=== PATIENT | male | born 1970 | race Asian ===

== ENCOUNTER 2017-12-20 15:14 | Observation (INO) | payer OTHER ==
[2017-12-20] MEDS ORDERED: NS 0.9% 1000 ML* 1,000 ML IV ONE (17:32)
[2017-12-20 18:06] LABS: ABS Basophils 0.1 10^3/ul (0-0.2); ABS Eosinophils 0 10^3/ul (0-0.6); ABS Lymphocytes 1.9 10^3/ul (1.0-4.8); ABS Monocytes 1.5 10^3/ul (0-0.8); ABS Neutrophils 14.5 10^3/ul (1.5-7.7); ABS Nucleated RBC 0 10^3/ul; Eosinophil % 0.2 % (0-6); Hematocrit 47 % (42-52); Lymphocyte % 10.4 % (25-47); Mean Corpuscular HGB Conc 34 g/dl (31-36); Mean Corpuscular Hemoglobin 29 pg (27-31); Mean Corpuscular Volume 84 fL (80-94); Mean Platelet Volume 9 um3 (7.4-10.4); Nucleated Red Blood Cells % 0; Platelet Count 232 10^3/ul (150-450); Red Blood Count 5.54 10^6/ul (4.0-5.4); Red Cell Distribution Width 14 % (10.5-15); White Blood Count 17.9 10^3/ul (3.5-10.8)
[2017-12-20 18:22] LABS: INR 1.03 (0.77-1.02)
[2017-12-20 18:23] LABS: EGFR Non-African American 104.2 (>60)
[2017-12-20] MEDS ORDERED: Iohexol 300* (CONTRAST) 10 ML SDV IV ONE (19:10)
[2017-12-20] MEDS ORDERED: Ketorolac INJ* 30 MG/ML 1 ML VIAL IV PUSH ONE (19:18)
[2017-12-20 19:44] LABS: Urine Appearance Clear; Urine Blood Negative (Negative); Urine Color Yellow; Urine Ketones 1+ (Negative); Urine Protein Negative (Negative); Urine Urobilinogen Negative (Negative)
[2017-12-20] MEDS ORDERED: Piperacillin/Tazobac ADVAN(*) 3.375 GM in NS 0.9% 100 ML* 100 ML IVPB ONE (20:49)
--- NOTE | 2017-12-20 21:48 | RAD ---
Indication: Right lower quadrant pain. Contrast: Administered 88.0 ml of OMNIPAQUE 300 mg/ml CT of the abdomen and pelvis was performed after oral and IV contrast administration. Coronal and sagittal reconstructed images were obtained. The lung bases demonstrate small pleural effusions with bibasilar atelectasis. Heart is of normal size without evidence of pericardial effusion. The liver is normal in size. There is a low density lesion in the left lobe of liver measuring 7 mm. No intrahepatic duct dilatation is noted. The gallbladder is partially contracted. No gallstones are identified. The pancreas demonstrates no mass or pancreatic duct dilatation. The spleen is normal in size. No adrenal lesions are noted. The kidneys demonstrate symmetric nephrograms without focal lesions. There is a low density lesion in the upper pole of the right kidney measuring 17 mm. No retroperitoneal lymphadenopathy is noted. CT of the pelvis demonstrates a dilated appendix. An appendicolith is present at the base of the appendix. Inflammatory changes are noted. The urinary bladder is otherwise unremarkable. No evidence of bowel obstruction is noted. IMPRESSION: Findings consistent with acute appendicitis with appendicolith and enlarged fluid-filled appendix. Adjacent inflammatory changes are noted. Dr. Doyle was notified of the results at 2145 hours.
--- NOTE | 2017-12-20 21:55 | ED ---
Ema Soto Thomas, scribed for Irma Doyle MD on 12/20/17 at 1912 . GI/ HPI - HPI Summary HPI Summary: The patient is a 47 year old male who presents with suprapubic and RLQ abdominal pain that began today as well as blood noted during his last BM that occurred today at 11:00. The pain is sharp and radiates to his back. He additionally complains of lower back pain. He denies constipation, diarrhea, and testicular pain. Past medical history includes hypertension. He is not anticoagulated. - History of Current Complaint Chief Complaint: EDGIBleed Time Seen by Provider: 12/20/17 17:31 Stated Complaint: ABD PAIN/FLANK PAIN Hx Obtained From: Patient Onset/Duration: Started Hours Ago - onset earlier today, Still Present Timing: Constant Current Severity: Moderate Pain Intensity: 8 Location of Pain: RLQ, Suprapubic Pain Characteristics: Sharp Pain Radiates to: Back Associated Signs and Symptoms: Positive: Blood w/Stool, Other: - Lower back pain ; NEGATIVE: constipation, diarrhea, and testicular pain, fever, eye erythema, ear ache, chest pain, shortness of breath, dysuria, hematuria, edema, rashes, bruises, headache, anxiety, and depression Alleviating Factor(s): Nothing - Allergy/Home Medications Allergies/Adverse Reactions: Allergies Allergy/AdvReac Type Severity Reaction Status Date / Time No Known Allergies Allergy Verified 11/27/17 14:34 PMH/Surg Hx/FS Hx/Imm Hx Endocrine/Hematology History: Denies: Hx Diabetes Cardiovascular History: Reports: Hx Hypertension Denies: Hx Pacemaker/ICD Respiratory History: Reports: Hx Chronic Obstructive Pulmonary Disease (COPD) Denies: Hx Asthma History: Denies: Hx Renal Disease Sensory History: Denies: Hx Hearing Aid Psychiatric History: Denies: Hx Panic Disorder - Surgical History Surgery Procedure, Year, and Place: KIDNEY STONES - Immunization History Date of Tetanus Vaccine: Unk Date of Influenza Vaccine: None Infectious Disease History: No Infectious Disease History: Denies: Traveled Outside the [place] in Last 30 Days - Family History Known Family History: Positive: Hypertension Negative: Cardiac Disease, Diabetes - Social History Alcohol Use: Occasionally Substance Use Type: Reports: Marijuana Smoking Status (MU): Current Every Day Smoker Review of Systems Negative: Fever, Chills Negative: Erythema Negative: Ear Ache Negative: Chest Pain Negative: Shortness Of Breath Positive: Abdominal Pain, Other - Blood with stool; NEGATIVE: constipation. Negative: Vomiting, Diarrhea Negative: dysuria, hematuria Positive: Other - Low back pain. Negative: Edema Negative: Rash, Bruising Negative: Headache Negative: Anxious, Depressed All Other Systems Reviewed And Are Negative: No Physical Exam - Summary Physical Exam Summary: Appearance: Alert, conversive, nontoxic appearing Skin: Warm, dry, no mottling, no rashes, no contusions HEENT: EOMI, PERRL, moist mucous membranes Neck: No masses on the neck, supple Respiratory: Clear to auscultation, breath sounds present, no rales, no rhonchi , no wheezes Cardiovascular: RRR, pulses are symmetrical in both lower and upper extremities Abdomen: Soft. He has mild suprapubic pain, more impressive on the right. Bowel Sounds: Present Musculoskeletal: No CVA tenderness, no obvious deformity, moving all extremities in a grossly normal manner Neurological: A&Ox3, CN II-XII Intact, moving all extremities symmetrically Psychiatric: Normal affect and mood Triage Information Reviewed: Yes Vital Signs On Initial Exam: Initial Vitals Temp Pulse Resp BP Pulse Ox 97.8 F 89 18 166/90 97 12/20/17 17:12 12/20/17 17:12 12/20/17 17:12 12/20/17 17:12 12/20/17 17:12 Vital Signs Reviewed: Yes Diagnostics - Vital Signs Vital Signs Temp Pulse Resp BP Pulse Ox 12/20/17 18:00 77 19 98 12/20/17 17:44 85 95 12/20/17 17:43 163/83 12/20/17 17:12 97.8 F 89 18 166/90 97 - Laboratory Lab Results: Lab Results 12/20/17 12/20/17 12/20/17 Range/Units 17:48 17:48 17:48 WBC (3.5-10.8) 10^3/ul RBC (4.0-5.4) 10^6/ul Hgb (14.0-18.0) g/dl Hct (42-52) % MCV (80-94) fL MCH (27-31) pg MCHC (31-36) g/dl RDW (10.5-15) % Plt Count (150-450) 10^3/ul MPV (7.4-10.4) um3 Neut % (Auto) (38-83) % Lymph % (Auto) (25-47) % [place] % (Auto) (1-9) % Eos % (Auto) (0-6) % Baso % (Auto) (0-2) % Absolute Neuts (auto) (1.5-7.7) 10^3/ul Absolute Lymphs (auto) (1.0-4.8) 10^3/ul Absolute Monos (auto) (0-0.8) 10^3/ul Absolute Eos (auto) (0-0.6) 10^3/ul Absolute Basos (auto) (0-0.2) 10^3/ul Absolute Nucleated RBC 10^3/ul Nucleated RBC % INR (Anticoag Therapy) 1.03 H (0.77-1.02) APTT 32.6 (26.0-36.3) seconds Sodium 139 (133-145) mmol/L Potassium 3.3 L (3.5-5.0) mmol/L Chloride 100 L (101-111) mmol/L Carbon Dioxide 32 (22-32) mmol/L Anion Gap 7 (2-11) mmol/L BUN 9 (6-24) mg/dL Creatinine 0.79 (0.67-1.17) mg/dL Est GFR ( Amer) 134.1 (>60) Est GFR (Non-Af Amer) 104.2 (>60) BUN/Creatinine Ratio 11.4 (8-20) Glucose 96 (70-100) mg/dL Calcium 9.5 (8.6-10.3) mg/dL Total Bilirubin 0.90 (0.2-1.0) mg/dL AST 13 (13-39) U/L ALT 11 (7-52) U/L Alkaline Phosphatase 69 (34-104) U/L Troponin I 0.00 (<0.04) ng/mL Total Protein 7.6 (6.4-8.9) g/dL Albumin 4.1 (3.2-5.2) g/dL Globulin 3.5 (2-4) g/dL Albumin/Globulin Ratio 1.2 (1-3) Lipase 16 (11.0-82.0) U/L Blood Type B Positive Antibody Screen Negative 12/20/17 Range/Units 17:48 WBC 17.9 H (3.5-10.8) 10^3/ul RBC 5.54 H (4.0-5.4) 10^6/ul Hgb 16.0 (14.0-18.0) g/dl Hct 47 (42-52) % MCV 84 (80-94) fL MCH 29 (27-31) pg MCHC 34 (31-36) g/dl RDW 14 (10.5-15) % Plt Count 232 (150-450) 10^3/ul MPV 9 (7.4-10.4) um3 Neut % (Auto) 80.7 (38-83) % Lymph % (Auto) 10.4 L (25-47) % [place] % (Auto) 8.2 (1-9) % Eos % (Auto) 0.2 (0-6) % Baso % (Auto) 0.5 (0-2) % Absolute Neuts (auto) 14.5 H (1.5-7.7) 10^3/ul Absolute Lymphs (auto) 1.9 (1.0-4.8) 10^3/ul Absolute Monos (auto) 1.5 H (0-0.8) 10^3/ul Absolute Eos (auto) 0 (0-0.6) 10^3/ul Absolute Basos (auto) 0.1 (0-0.2) 10^3/ul Absolute Nucleated RBC 0 10^3/ul Nucleated RBC % 0 INR (Anticoag Therapy) (0.77-1.02) APTT (26.0-36.3) seconds Sodium (133-145) mmol/L Potassium (3.5-5.0) mmol/L Chloride (101-111) mmol/L Carbon Dioxide (22-32) mmol/L Anion Gap (2-11) mmol/L BUN (6-24) mg/dL Creatinine (0.67-1.17) mg/dL Est GFR ( Amer) (>60) Est GFR (Non-Af Amer) (>60) BUN/Creatinine Ratio (8-20) Glucose (70-100) mg/dL Calcium (8.6-10.3) mg/dL Total Bilirubin (0.2-1.0) mg/dL AST (13-39) U/L ALT (7-52) U/L Alkaline Phosphatase (34-104) U/L Troponin I (<0.04) ng/mL Total Protein (6.4-8.9) g/dL Albumin (3.2-5.2) g/dL Globulin (2-4) g/dL Albumin/Globulin Ratio (1-3) Lipase (11.0-82.0) U/L Blood Type Antibody Screen Result Diagrams: 12/20/17 17:48 12/20/17 17:48 Lab Statement: Any lab studies that have been ordered have been reviewed, and results considered in the medical decision making process. - CT Abd/Pel CT Interpretation: Positive (See Comments) - Findings consistent with acute appendicitis with appendicolith and enlarged fluid-filled appendix. Adjacent inflammatory changes are noted. CT Interpretation Completed By: Radiologist - EKG 17:34 Cardiac Rate: NL EKG Rhythm: Sinus Rhythm - at 76 BPM EKG Interpretation: Slightly prolonged QRS. Normal QTc. Incomplete RBBB. Normal ST T-waves. GIGU Course/Dx - Course Assessment/Plan: The patient is a 47 year old male who presents with suprapubic and RLQ abdominal pain that began today as well as blood noted during his last BM that occurred today at 11:00. The patient was given IV fluids, Zosyn, and Toradol. Bloodwork, urinalysis, and an EKG were obtained. CT Abd/Pel shows acute appendicitis. Dr. Antony, surgery, will admit. - Diagnoses Provider Diagnoses: Acute appendicitis - Physician Notifications Discussed Care Of Patient With: Esau Antony Time Discussed With Above Provider: 21:52 Instructed by Provider To: Admit As Inpatient Discharge - Discharge Plan Condition: Fair Disposition: ADMITTED TO [facility] Referrals: Samuel Green MD [Primary Care Provider] - The documentation as recorded by the Ema bravo Thomas accurately reflects the service I personally performed and the decisions made by , Irma Doyle MD.
[2017-12-20] MEDS ORDERED: Ondansetron INJ* 2 MG/ML VIAL IV PRN (21:59)
[2017-12-20] MEDS ORDERED: HYDROmorphone INJ* 2 MG/ML CARPUJECT SYRINGE IV PRN (21:59)
[2017-12-20] MEDS ORDERED: Piperacillin/Tazobactam VIAL*) 3.375 GM in NS 0.9% 100 ML* 100 ML IVPB SCH (22:00)
[2017-12-21] MEDS: NS 0.9% 1000 ML* 1,000 ML IV SCH ×3 (00:23→13:54)
[2017-12-21] MEDS: Piperacillin/Tazobactam 13.5 GM IV 24 hour continuous infusion IVPB SCH ×2 (00:40)
[2017-12-21] MEDS ORDERED: Bupivacaine 0.25% SDV* 30 ML ONE (07:34)
--- NOTE | 2017-12-21 08:19 | HP ---
H&P (Free Text) History and Physical: Surgery H & P Asked by Dr. Antony to take over care of Mr. Reed, a 47 y.o. male with abdominal pain and a CT suggestive of appendicitis. Mr. Reed began to have "cramping pain" that was vague and located in the upper abdomen yesterday morning. Over the day the pain progressed and eventually localized to the RLQ. He denies nausea, vomiting. He has had some constipation, no diarrhea. He denies dysuria. He does not think he had a fever. The pain medicine in the ER has managed his pain. He has never had this pain before, he denies anorexia. PMHx: HTN Meds: HCTZ, amlodipine NKDA ROS: denies SH: tob 11/29-11/27 ppd; denies EtOH, neg. IVDA FH: denies PE: general: WDWN male in NAD Vital Signs 12/20/17 12/20/17 12/20/17 17:12 17:43 17:44 Temperature 97.8 F Pulse Rate 89 85 Respiratory 18 Rate Blood Pressure 166/90 163/83 (mmHg) O2 Sat by Pulse 97 95 Oximetry 12/20/17 12/20/17 12/20/17 18:00 19:00 21:41 Temperature Pulse Rate 77 85 81 Respiratory 19 18 23 Rate Blood Pressure (mmHg) O2 Sat by Pulse 98 98 97 Oximetry 12/20/17 12/20/17 12/20/17 22:00 22:36 22:48 Temperature 100.1 F Pulse Rate 76 68 Respiratory 7 23 18 Rate Blood Pressure 146/75 146/75 (mmHg) O2 Sat by Pulse 98 99 Oximetry 12/20/17 12/20/17 12/21/17 23:25 23:35 03:41 Temperature 97.9 F 97.9 F 98.7 F Pulse Rate 70 70 71 Respiratory 17 17 16 Rate Blood Pressure 134/73 134/73 141/73 (mmHg) O2 Sat by Pulse 99 99 99 Oximetry 12/21/17 07:18 Temperature Pulse Rate Respiratory 16 Rate Blood Pressure (mmHg) O2 Sat by Pulse Oximetry HEENT: anicteric, injected sclerae, dry oral mucosa, neg. cervical adenopathy. lungs: bilateral wheezing heart: reg, no murmurs. abd: good BS, soft, tender in RLQ, and suprapubic area with guarding, no rebound. ext: neg. cyanosis, edema, easily palp DP pulses. Laboratory Results - last 24 hr 12/20/17 12/20/17 12/20/17 17:48 17:48 17:48 WBC RBC Hgb Hct MCV MCH MCHC RDW Plt Count MPV Neut % (Auto) Lymph % (Auto) [place] % (Auto) Eos % (Auto) Baso % (Auto) Absolute Neuts (auto) Absolute Lymphs (auto) Absolute Monos (auto) Absolute Eos (auto) Absolute Basos (auto) Absolute Nucleated RBC Nucleated RBC % INR (Anticoag Therapy) 1.03 H APTT 32.6 Sodium 139 Potassium 3.3 L Chloride 100 L Carbon Dioxide 32 Anion Gap 7 BUN 9 Creatinine 0.79 Est GFR ( Amer) 134.1 Est GFR (Non-Af Amer) 104.2 BUN/Creatinine Ratio 11.4 Glucose 96 Calcium 9.5 Total Bilirubin 0.90 AST 13 ALT 11 Alkaline Phosphatase 69 Troponin I 0.00 Total Protein 7.6 Albumin 4.1 Globulin 3.5 Albumin/Globulin Ratio 1.2 Lipase 16 Urine Color Urine Appearance Urine pH Ur Specific [place] Urine Protein Urine Ketones Urine Blood Urine Nitrate Urine Bilirubin Urine Urobilinogen Ur Leukocyte Esterase Urine Glucose Blood Type B Positive Antibody Screen Negative 12/20/17 12/20/17 17:48 19:10 WBC 17.9 H RBC 5.54 H Hgb 16.0 Hct 47 MCV 84 MCH 29 MCHC 34 RDW 14 Plt Count 232 MPV 9 Neut % (Auto) 80.7 Lymph % (Auto) 10.4 L [place] % (Auto) 8.2 Eos % (Auto) 0.2 Baso % (Auto) 0.5 Absolute Neuts (auto) 14.5 H Absolute Lymphs (auto) 1.9 Absolute Monos (auto) 1.5 H Absolute Eos (auto) 0 Absolute Basos (auto) 0.1 Absolute Nucleated RBC 0 Nucleated RBC % 0 INR (Anticoag Therapy) APTT Sodium Potassium Chloride Carbon Dioxide Anion Gap BUN Creatinine Est GFR ( Amer) Est GFR (Non-Af Amer) BUN/Creatinine Ratio Glucose Calcium Total Bilirubin AST ALT Alkaline Phosphatase Troponin I Total Protein Albumin Globulin Albumin/Globulin Ratio Lipase Urine Color Yellow Urine Appearance Clear Urine pH 7.0 Ur Specific [place] 1.010 Urine Protein Negative Urine Ketones 1+ H Urine Blood Negative Urine Nitrate Negative Urine Bilirubin Negative Urine Urobilinogen Negative Ur Leukocyte Esterase Negative Urine Glucose Negative Blood Type Antibody Screen CT abdomen/pelvis shows thickened appendix with fecalith. A/P: 47 y.o. male with probable appendicitis. Will proceed to OR for laparoscopic appendectomy. I have explained to him the nature of the procedure , its risks, benefits, and alternatives. He understands and agrees to proceed. Minnie
--- NOTE | 2017-12-21 08:59 | RAD ---
HISTORY: Wheezing COMPARISONS: November 07, 2016 VIEWS: 1: frontal portable view of the chest at 8:15 AM FINDINGS: LINES AND TUBES: None. CARDIOMEDIASTINAL SILHOUETTE: The cardiomediastinal silhouette is normal for portable technique. PLEURA: Again noted is pleural thickening bilaterally. LUNG PARENCHYMA: Inflation. There are stable pleural parenchymal scarring. ABDOMEN: The upper abdomen is clear. There is no subphrenic gas. BONES AND SOFT TISSUES: No bone or soft tissue abnormalities are noted. IMPRESSION: STABLE PLEURAL THICKENING WITH PLEURAL PARENCHYMAL SCARRING AND HYPERINFLATION.
[2017-12-21] MEDS ORDERED: Succinylcholine* 20 MG/ML 10 ML VIAL ONE (09:10)
[2017-12-21] MEDS ORDERED: Propofol* 10 MG/ML 20 ML BTL IV PUSH ONE (09:10)
[2017-12-21] MEDS ORDERED: fentaNYL* 50 MCG/ML 2 ML VIAL (100 MCG VIAL) ONE (09:10)
[2017-12-21] MEDS ORDERED: Lidocaine 2% PF * 5 ML VIAL ONE (09:11)
[2017-12-21] MEDS ORDERED: oxyCODONE/Acetamin 5/325 MG* TAB PO PRN ×2 (09:55→10:47)
[2017-12-21] MEDS ORDERED: fentaNYL* 50 MCG/ML 2 ML VIAL (100 MCG VIAL) IV PRN (09:55)
[2017-12-21] MEDS ORDERED: DiMENhydriNATE IV* 50 MG/ML VIAL IV PUSH PRN (09:55)
[2017-12-21] MEDS ORDERED: Naloxone* 0.4 MG/ML 1 ML VIAL IV PRN (09:55)
[2017-12-21] MEDS ORDERED: Ondansetron INJ* 2 MG/ML VIAL IV PRN (09:55)
[2017-12-21] MEDS ORDERED: Ketorolac INJ* 30 MG/ML 1 ML VIAL IV PRN (09:55)
--- NOTE | 2017-12-21 10:26 | BRIEFOPN ---
Brief Operative Note - Surgery Procedures: 12/21/17 Op Note (dictated) Pre-op dx: appendicitis Post-op dx: same Procedure: laparoscopic appendectomy surgeon: Sriram Asst: none Anesth: general EBL: 5 cc complications; none SCDs on during surgery Abx: given pre-op Pt. tolerated procedure well and was transferred to in a stable condition. CLFoster
[2017-12-21] MEDS ORDERED: Acetaminophen TAB* 325 MG PO PRN (10:48)
[2017-12-21] MEDS ORDERED: Ibuprofen TAB* 600 MG PO PRN (10:49)
[2017-12-21] MEDS: amLODIPine TAB* 5 MG PO SCH (12:17)
[2017-12-21] MEDS: oxyCODONE/Acetamin 5/325 MG* TAB PO PRN ×2 (12:17→19:18)
--- NOTE | 2017-12-21 22:21 | OP ---
CC: [facility] OPERATIVE SUMMARY: DATE OF OPERATION: 12/21/17 DATE OF : 66 SURGEON: Candis Bhatia MD TRANSISTOR TESTER: There was no assistant corporate secretary for this case. PRE-OP DIAGNOSIS: Appendicitis. POST-OP DIAGNOSIS: Appendicitis. OPERATIVE PROCEDURE: Laparoscopic appendectomy. INDICATIONS: Mr. Reed is a 47-year-old male, who presented to the emergency room with abdominal p ain consistent with appendicitis. A CAT scan suggested appendicitis and exam was consistent with sadaf endicitis. This prompted the plan for a surgical intervention. DESCRIPTION OF PROCEDURE: He was brought to the operating room, placed on the OR table in a supine p osition, and given general anesthesia. The abdomen was then prepped and draped in the usual sterile fashion. After infiltrating with local anesthetic, a curvilinear infraumbilical incision was made an d subcutaneous tissue was divided bluntly. The fascia was grasped and incised and a 0 Vicryl stitch was placed on either side of the fascial incision. A trocar was inserted into the abdomen and the ab domen was insufflated and under direct visualization after infiltrating with local anesthetic, ports were placed in the suprapubic and left flank area. The right lower quadrant was visualized and was n oted to be omentum and bowel adherent to what turned out to be an inflamed suppurative appendix. The bowel and omentum were mobilized away from the appendix. The appendix was grasped and the base of t he appendix was identified and cleared. The EndoGIA stapler was then fired across the bases of the a ppendix and a second firing was fired across the mesoappendix. The appendix was placed in an EndoCat ch bag and withdrawn from the abdomen through the infraumbilical port site. Recent inspection of the rest of the abdomen revealed a small inguinal hernia on the right side and fatty liver. No other ob vious abnormalities were seen, although visualization was limited. The ports were withdrawn under di rect visualization. The previously placed 0 Vicryl was used to close the fascia at the infraumbilica l port site and 4-0 Monocryl was used to close the skin of all incisions. Steri-Strips were applied. All sponge and instrument counts were correct. The patient tolerated the procedure well and was tr ansferred to Recovery in a stable condition. [id number]/[facility] #: [id number]
[2017-12-22] MEDS: Piperacillin/Tazobactam 13.5 GM IV 24 hour continuous infusion IVPB SCH ×2 (00:42)
[2017-12-22] MEDS: oxyCODONE/Acetamin 5/325 MG* TAB PO PRN ×2 (00:42→07:20)
[2017-12-22] MEDS: amLODIPine TAB* 5 MG PO SCH (07:20)
--- NOTE | 2017-12-22 07:51 | PN ---
Progress Note - Progress Note Date of Service: 12/22/17 Note: Surgery Mr. Reed feels "much better" than before surgery. He has a little abdominal pain, but not much. He has tolerated a diet and been ambulating independently. Vital Signs 12/21/17 12/21/17 12/21/17 10:05 10:10 10:15 Temperature 97.5 F Pulse Rate 85 88 81 Respiratory 20 21 22 Rate Blood Pressure 137/75 143/87 162/82 (mmHg) O2 Sat by Pulse 96 94 94 Oximetry 12/21/17 12/21/17 12/21/17 10:20 10:25 10:30 Temperature Pulse Rate 80 80 80 Respiratory 24 22 20 Rate Blood Pressure 168/90 174/85 (mmHg) O2 Sat by Pulse 94 93 93 Oximetry 12/21/17 12/21/17 12/21/17 10:45 11:15 12:16 Temperature 99.4 F 98.0 F Pulse Rate 78 78 79 Respiratory 22 16 16 Rate Blood Pressure 164/94 171/88 172/87 (mmHg) O2 Sat by Pulse 94 96 100 Oximetry 12/21/17 12/21/17 12/21/17 12:17 13:50 14:45 Temperature 98.3 F Pulse Rate 76 Respiratory 16 16 16 Rate Blood Pressure 149/74 (mmHg) O2 Sat by Pulse 97 Oximetry 12/21/17 12/21/17 12/21/17 15:26 16:00 17:31 Temperature 98.5 F 98.4 F Pulse Rate 75 73 Respiratory 18 16 Rate Blood Pressure 147/79 158/78 (mmHg) O2 Sat by Pulse 99 99 99 Oximetry 12/21/17 12/21/17 12/21/17 19:18 19:55 21:06 Temperature 99.8 F Pulse Rate 78 Respiratory 16 16 16 Rate Blood Pressure 159/83 (mmHg) O2 Sat by Pulse 99 Oximetry 12/22/17 12/22/17 12/22/17 00:07 00:42 02:42 Temperature 98.1 F Pulse Rate 75 Respiratory 16 17 14 Rate Blood Pressure 144/82 (mmHg) O2 Sat by Pulse 98 Oximetry 12/22/17 12/22/17 04:20 07:20 Temperature 98.0 F Pulse Rate 63 Respiratory 16 16 Rate Blood Pressure 137/75 (mmHg) O2 Sat by Pulse 100 Oximetry Abd: good BS, soft, non-tender Incisions: clean and dry, no signs infection. Intake & Output 12/21/17 12/22/17 12/22/17 22:59 06:59 14:59 Intake Total 2450 550 Output Total 2049 1050 250 Balance 400 -500 -250 Intake: IV Fluids 1104 NS 1104 IVPB 246 ABX - ZOSYN 246 Oral 1100 550 Output: Urine 2049 1050 250 A/P: POD#1 s/p lap appy, doing well, can go home on oral abx. CLFoster
[2017-12-22 09:30] VITALS: BP 177/87
== END 2017-12-22 10:45 | disposition home or self-care (01) ==
LOC: ED 15:14 → SSU 21:59
PROVIDERS: ADMIT Surgery; ATTEND Surgery
PROC: 0DTJ4ZZ Resection of Appendix, Percutaneous Endoscopic Approach (ICD-10-PCS; principal; 2017-12-20)
DX: R10.31 Right lower quadrant pain (principal); F17.210 Nicotine dependence, cigarettes, uncomplicated; K35.80 Unspecified acute appendicitis; M54.9 Dorsalgia, unspecified; Z86.79 Personal history of other diseases of the circulatory system; Z87.09 Personal history of other diseases of the respiratory system
CPT/HCPCS: 36415; 71045; 74177; 80053; 81003; 83690; 84484; 85025; 85610; 85730; 86703; 86850; 86900; 86901; 88304; 93005; 96365; 96366; 99284; A9270-GY; C1776; G0378; J0330; J1170; J1885; J2543; J2704; J3010; Q9967